=== PATIENT | male | born 1940 | race American Indian/Alaskan Native ===

== ENCOUNTER 2019-08-28 21:40 | Emergency (ER) | payer MEDICARE ==
--- NOTE | 2019-08-28 22:20 | Emergency Department Report ---
ED General Adult HPI - General Chief complaint: Syncope Stated complaint: SYNCOPE EPI Time Seen by Provider: 08/28/19 22:19 Source: EMS Mode of arrival: Stretcher Limitations: No Limitations - History of Present Illness Initial comments: 78-year-old male with a history of hypertension, BPH, CHF and diabetes presents after having a syncopal episode. Per his patient appears if he were [place] per air and then while eating at 8:30 PM he became unresponsive per the . states she couldn't get him up for 30 minutes. Patient was given oxygen by EMS and was oriented to person place and time subsequent to this. Patient denies any vomiting chest pain or shortness of breath. Patient has had no recent falls. Patient denies any recent head trauma. states the patient was at the table the entire time with no falls or seizure activity. White states that PCP has recently changed his amlodipine therapy to only be given at nighttime as patient had had a similar episode 6 weeks ago where the could not get him up and EMS was called and patient immediately became more responsive pain was not brought to the emergency department. - Related Data Home Medications Medication Instructions Recorded Confirmed Last Taken Simvastatin [Zocor TAB] 40 mg PO QDAY 09/16/13 09/16/13 Unknown Sitagliptin Phosphate [Januvia] 100 mg PO 09/16/13 09/16/13 Unknown Sodium Bicarbonate 650 mg PO BID 09/16/13 09/16/13 Unknown Terazosin (Nf) [Hytrin (Nf)] 5 mg PO QHS 09/16/13 09/16/13 Unknown amLODIPine 10 mg PO DAILY 09/16/13 09/16/13 Unknown dilTIAZem CD [Cardizem CD] 240 mg PO QDAY 09/16/13 09/16/13 Unknown methazolAMIDE [Neptazane] 25 mg PO BID 09/16/13 09/16/13 Unknown Previous Rx's Medication Instructions Recorded Last Taken Type Carvedilol [Coreg] 6.25 mg PO BID #60 tablet 09/17/13 Unknown Rx Furosemide [Lasix] 40 mg PO BIDWM #60 tablet 09/17/13 Unknown Rx Allergies Allergy/AdvReac Type Severity Reaction Status Date / Time No Known Allergies Allergy Verified 09/16/13 04:33 ED Review of Systems ROS: Stated complaint: SYNCOPE EPI Other details as noted in HPI Constitutional: denies: chills, fever Eyes: denies: eye pain, eye discharge, vision change ENT: denies: ear pain, throat pain Respiratory: denies: cough, shortness of breath, wheezing Cardiovascular: denies: chest pain, palpitations Endocrine: no symptoms reported Gastrointestinal: denies: abdominal pain, nausea, diarrhea Genitourinary: denies: urgency, dysuria Musculoskeletal: denies: back pain, joint swelling, arthralgia Skin: denies: rash, lesions Neurological: other (syncope) Psychiatric: denies: anxiety, depression Hematological/Lymphatic: denies: easy bleeding, easy bruising ED Past Medical Hx - Past Medical History Hx Hypertension: Yes Hx Congestive Heart Failure: Yes Hx Diabetes: Yes Additional medical history: High cholestrol - Social History Smoking Status: Never Smoker Substance Use Type: None - Medications Home Medications: Home Medications Medication Instructions Recorded Confirmed Last Taken Type Simvastatin [Zocor TAB] 40 mg PO QDAY 09/16/13 09/16/13 Unknown History Sitagliptin Phosphate [Januvia] 100 mg PO 09/16/13 09/16/13 Unknown History Sodium Bicarbonate 650 mg PO BID 09/16/13 09/16/13 Unknown History Terazosin (Nf) [Hytrin (Nf)] 5 mg PO QHS 09/16/13 09/16/13 Unknown History amLODIPine 10 mg PO DAILY 09/16/13 09/16/13 Unknown History dilTIAZem CD [Cardizem CD] 240 mg PO QDAY 09/16/13 09/16/13 Unknown History methazolAMIDE [Neptazane] 25 mg PO BID 09/16/13 09/16/13 Unknown History Carvedilol [Coreg] 6.25 mg PO BID #60 tablet 09/17/13 Unknown Rx Furosemide [Lasix] 40 mg PO BIDWM #60 tablet 09/17/13 Unknown Rx ED Physical Exam - General Limitations: No Limitations General appearance: alert, other (comfortable;) - Head Head exam: Present: atraumatic, normocephalic - Eye Eye exam: Present: normal appearance - ENT ENT exam: Present: mucous membranes moist - Neck Neck exam: Present: normal inspection - Respiratory Respiratory exam: Present: normal lung sounds bilaterally. Absent: respiratory distress - Cardiovascular Cardiovascular Exam: Present: regular rate, normal rhythm. Absent: systolic murmur, diastolic murmur, rubs, gallop - GI/Abdominal GI/Abdominal exam: Present: soft, normal bowel sounds - Rectal Rectal exam: Present: deferred - Extremities Exam Extremities exam: Present: normal inspection - Back Exam Back exam: Present: normal inspection - Neurological Exam Neurological exam: Present: alert, oriented X3 - Psychiatric Psychiatric exam: Present: normal affect, normal mood - Skin Skin exam: Present: warm, dry, intact, normal color. Absent: rash ED Course Vital Signs 08/28/19 08/28/19 08/28/19 22:31 23:05 23:15 Temperature 97.6 F Pulse Rate 53 L 49 L 53 L Respiratory 16 13 15 Rate Blood Pressure 179/76 Blood Pressure 173/69 181/77 [Left] O2 Sat by Pulse 100 99 100 Oximetry 08/28/19 08/28/19 08/28/19 23:16 23:30 23:46 Temperature Pulse Rate 51 L 52 L 54 L Respiratory 15 12 11 L Rate Blood Pressure 179/76 181/77 168/76 Blood Pressure [Left] O2 Sat by Pulse 100 100 99 Oximetry 08/29/19 08/29/19 08/29/19 00:00 00:16 00:30 Temperature Pulse Rate 52 L 51 L 48 L Respiratory 12 18 14 Rate Blood Pressure 168/76 168/76 168/63 Blood Pressure [Left] O2 Sat by Pulse 99 97 100 Oximetry 08/29/19 08/29/19 08/29/19 00:46 01:00 01:16 Temperature Pulse Rate 48 L 50 L 58 L Respiratory 11 L 13 13 Rate Blood Pressure 168/63 168/63 187/74 Blood Pressure [Left] O2 Sat by Pulse 100 99 98 Oximetry 08/29/19 08/29/19 08/29/19 01:30 01:46 02:00 Temperature Pulse Rate 51 L 53 L 54 L Respiratory 13 11 L 12 Rate Blood Pressure 187/74 187/74 187/74 Blood Pressure [Left] O2 Sat by Pulse 99 99 100 Oximetry 08/29/19 03:05 Temperature Pulse Rate 52 L Respiratory 14 Rate Blood Pressure 174/69 Blood Pressure [Left] O2 Sat by Pulse 99 Oximetry ED Medical Decision Making - Lab Data Result diagrams: 08/28/19 22:21 - EKG Data EKG shows normal: sinus rhythm Rate: bradycardia - EKG Data Interpretation: no acute changes, other (NO ST changes or T wave inversions) - Medical Decision Making Patient states he has a history of chronic kidney disease. In light of patient's syncopal event was admitted to the hospitalist service for continued management and treatment. Patient noted to have a elevated BNP as well. Patient had a CT of the head which showed no evidence of any acute intracranial pathology. In light of patient's syncope the plan was for patient to be admitted to the hospitalist service. Patient however does not want to stay in the hospital. Patient is oriented to person place and time. Patient later at risk of recurrent syncopal events potentially causing neurologic or Cardiologic complications potentially resulting in . Patient still states he wants to leave AMA. - Differential Diagnosis STEMI; NSTEMI; electrolyte abnormality; Dehydration Critical care attestation.: If time is entered above; I have spent that time in minutes in the direct care of this critically ill patient, excluding procedure time. ED Disposition Clinical Impression: Syncope, Chronic kidney disease, CHF (congestive heart failure) Disposition: DC-[id number] LEFT AGAINST MED ADVICE Is pt being admited?: No Condition: Stable Instructions: Syncope (ED) Referrals: PRIMARY CARE, [Primary Care Provider] - 3-5 Days Time of Disposition: 03:27 Print Language: CZECH
--- NOTE | 2019-08-29 01:14 | XRay Report ---
CHEST 1 VIEW INDICATION / CLINICAL INFORMATION: Syncope. COMPARISON: 08/02/2010 FINDINGS: SUPPORT DEVICES: None. HEART / MEDIASTINUM: Cardiac silhouette is mildly enlarged. LUNGS / PLEURA: There is pulmonary venous hypertension but no overt interstitial pulmonary edema. The lungs are grossly clear. No pneumothorax. ADDITIONAL FINDINGS: No significant additional findings. IMPRESSION: 1. Mild cardiomegaly with mild pulmonary venous hypertension. Signer Name: Mily Werner MD Signed: 08/28/2019 11:45 PM Workstation Name: [id number]
[2019-08-29 02:52] LABS: Calcium 9.5 mg/dL (8.4-10.2); Creatine Kinase MB 1.5 ng/mL (0.0-4.0)
--- NOTE | 2019-08-29 02:54 | Cat Scan Report ---
CT head/brain wo con INDICATION / CLINICAL INFORMATION: syncope and altered mental status. TECHNIQUE: Axial CT imaging of the brain was obtained without contrast. Coronal and sagittal reformatted imaging obtained and reviewed. All CT scans at this location are performed using CT dose reduction for ALAR A by means of automated exposure control. COMPARISON: None available. FINDINGS: No intracranial hemorrhage, mass, or midline shift noted. No extra-axial fluid collection or suggesti on of acute territorial infarction. Ventricular system and basilar cisterns are unremarkable. Moderat e cerebral atrophy noted. 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 Visualized paranasal sinuses demonstrate mild mucosal thickening in the left maxillary antrum. The re mainder of the paranasal sinuses and mastoid air cells are clear. IMPRESSION: 1. No acute intracranial abnormality. 2. Age-related changes. 3. Left maxillary sinus mucosal thickening. Signer Name: Mily Werner MD Signed: 08/29/2019 2:50 AM Workstation Name: [id number]
[2019-08-29 04:10] VITALS: BP 176/69
[2019-08-29 04:44] LABS: Chol/HDL Ratio 2.65 %
[2019-08-29 04:46] LABS: Basophils # (Auto) 0.1 K/mm3 (0.0-0.1); Basophils % (Auto) 1.2 % (0.0-1.8); Eosinophils # (Auto) 0.1 K/mm3 (0.0-0.4); Eosinophils % (Auto) 2.2 % (0.0-4.3); Hematocrit 35.2 % (35.5-45.6); Hemoglobin 11.7 gm/dl (11.8-15.2); Lymphocytes # (Auto) 1.4 K/mm3 (1.2-5.4); Lymphocytes % (Auto) 21.8 % (13.4-35.0); Mean Corpuscular HGB Conc 33 % (32-34); Mean Corpuscular Volume 96 fl (84-94); Monocytes # (Auto) 0.5 K/mm3 (0.0-0.8); Monocytes % (Auto) 7.4 % (0.0-7.3); Platelet Count 162 K/mm3 (140-440); Red Blood Count 3.67 M/mm3 (3.65-5.03); Red Cell Distribution Width 15.6 % (13.2-15.2)
== END 2019-08-29 04:11 | disposition left against medical advice (07) ==
LOC: ED 21:40
DX: R55 Syncope and collapse (principal); E11.22 Type 2 diabetes mellitus with diabetic chronic kidney disease; I13.0 Hypertensive heart and chronic kidney disease with heart failure and stage 1 through stage 4 chronic kidney disease, or unspecified chronic kidney disease; N18.9 Chronic kidney disease, unspecified; I50.9 Heart failure, unspecified; N40.0 Benign prostatic hyperplasia without lower urinary tract symptoms
CPT/HCPCS: 36415; 70450; 71045; 80053; 80061; 80320; 82550; 82553; 83880; 84484; 85025; 93005; 93010; G0480